=== PATIENT | male | born 1950 | race African-American/Black ===

== ENCOUNTER 2017-12-04 12:40 | Emergency (ER) | payer OTHER ==
[~2017-12-04] VITALS: Ht 180.3 cm; Wt 97.6 kg
[~2017-12-04 12:40] MED LIST: ANTIVERT25 MG PO; COREG25 M1 PO; FOLIC ACID1 MG PO; IRON18 MG PO; LOW DOSE ASPIRI81 M1 PO; NOHOMEMEDS; ONE-A-DAY MEN'1 EAC3 PO; PRINIVIL5 MG PO; SIMVASTATIN20 MG PO; VITAMIN B-1100 MG PO
[2017-12-04] MEDS ORDERED: PREDNISONE20 MG PO (14:24)
[2017-12-04] MEDS ORDERED: LIDODERM 5% P1 PATCH TD (14:24)
[2017-12-04] MEDS ORDERED: FLEXERIL10 MG PO (14:24)
[2017-12-04] MEDS ORDERED: MOTRIN800 MG PO (14:24)
[2017-12-04 15:03] VITALS: BP 142/67
== END 2017-12-04 15:04 | disposition home or self-care (01) ==
LOC: EME 12:40
DX: M62.838 Other muscle spasm (principal); V49.40XA Driver injured in collision with unspecified motor vehicles in traffic accident, initial encounter; Y92.410 Unspecified street and highway as the place of occurrence of the external cause; I10 Essential (primary) hypertension; I25.10 Atherosclerotic heart disease of native coronary artery without angina pectoris; Z79.82 Long term (current) use of aspirin
CPT/HCPCS: 72040; 99281; 99284; J1885; J7512

== ENCOUNTER 2018-03-06 07:07 | Emergency (ER) | payer OTHER ==
[~2018-03-06] VITALS: Ht 180.3 cm; Wt 95.6 kg
[~2018-03-06 07:07] MED LIST changes: +FLEXERIL10 MG PO; +LIDODERM 5% P1 PATCH TD; +MOTRIN800 MG PO; +PREDNISONE20 MG PO
[2018-03-06 07:48] LABS: BASOPHIL (%) 0.4 % (0-1); EOSINOPHIL (%) 4.8 % (0-5); EOSINOPHIL COUNT 0.2 K/uL (0-0.3); HEMATOCRIT 44.1 % (38.0-50.0); HEMOGLOBIN 14.4 G/DL (12.5-16.6); IMMATURE GRANULOCYTE (%) 0.2 % (0.0-0.7); LYMPHOCYTE (%) 42.4 % (15-42); LYMPHOCYTE COUNT 2.1 K/uL (1.0-2.8); MCH 26.9 PG (29.0-34.0); MCHC 32.7 G/DL (30.0-36.0); MCV 82.4 FL (86-99); MONOCYTE (%) 7.2 % (3-12); MONOCYTE COUNT 0.4 K/uL (0-0.8); NEUTROPHIL COUNT 2.2 K/uL (1.8-6.4); PLATELET COUNT 162 K/uL (156-360); RBC DIS.WIDTH-CV 19.8 % (11.8-14.6); RBC DIS.WIDTH-SD 57.6 % (39-53); RED BLOOD COUNT 5.35 M/uL (4.00-5.50); WHITE BLOOD COUNT 4.8 K/uL (4.1-10.2)
[2018-03-06 07:56] LABS: CHLORIDE 110 mEq/L (99-109); POTASSIUM 3.6 mEq/L (3.7-5.4); SODIUM 142 mEq/L (136-147)
[2018-03-06 07:57] LABS: GLUCOSE 122 mg/dL (70-99)
[2018-03-06 08:01] LABS: GFR ESTIMATE (CALCULATED) > 59 mL/min/ (58.99-99999)
[2018-03-06 08:02] LABS: UREA NITROGEN (BUN) 7 mg/dL (9-23)
[2018-03-06 08:09] LABS: TROP-I INTERPRETATION NEGATIVE; TROPONIN-I 0.01 ng/mL (0.0-0.30)
[2018-03-06] MEDS ORDERED: FLEXERIL10 MG PO (10:05)
[2018-03-06] MEDS ORDERED: MOTRIN800 MG PO (10:05)
[2018-03-06 10:20] VITALS: BP 130/94
== END 2018-03-06 10:21 | disposition home or self-care (01) ==
LOC: EME 07:07
PROVIDERS: Emergency Medicine
DX: S16.1XXA Strain of muscle, fascia and tendon at neck level, initial encounter (principal); S46.912A Strain of unspecified muscle, fascia and tendon at shoulder and upper arm level, left arm, initial encounter; M94.0 Chondrocostal junction syndrome [Tietze]; Y93.55 Activity, bike riding; Y92.410 Unspecified street and highway as the place of occurrence of the external cause; I10 Essential (primary) hypertension; I25.10 Atherosclerotic heart disease of native coronary artery without angina pectoris; Z79.82 Long term (current) use of aspirin
CPT/HCPCS: 71045; 80048; 84484; 85025; 93005; 99281; 99284